=== PATIENT | female | born 1985 | race Caucasian/White ===

== ENCOUNTER 2025-05-25 13:44 | Emergency (ER) | payer BC, SELFPAY ==
[2025-05-25 13:50] VITALS: BP 138/80
[2025-05-25 14:18] LABS: Hematocrit 42.5 % (37.0-47.0); Hemoglobin 13.8 g/dL (12.0-16.0); Mean Corp Hgb Conc. 32.5 g/dL (33.0-37.0); Mean Corpuscular Volume 91.6 fL (81.0-99.0); Nucleated Red Blood Cells % 0 %; Platelet Count 386 10^3/uL (130-400); Red Cell Dist. Width 12.5 % (11.5-14.5)
[2025-05-25 14:35] LABS: HCG, Serum Qualitative Screen Negative
[2025-05-25 14:39] LABS: ALT (SGPT) 20 U/L (0-35); AST (SGOT) 29 U/L (14-36); Albumin 4.9 g/dl (3.5-5.0); Alkaline Phosphatase 57 U/L (38-126); Blood Urea Nitrogen 9 mg/dl (7-17); Calcium 9.7 mg/dl (8.4-10.2); Carbon Dioxide 28 mmol/L (22-30); Chloride 104 mmol/L (98-107); Glucose 120 mg/dl (70-99); Potassium 4.0 mmol/L (3.5-5.1); Sodium 137 mmol/L (135-145); Total Protein 7.9 g/dl (6.3-8.2); eGFR > 60.00
[2025-05-25 14:43] LABS: Troponin I < 0.012 ng/ml
--- NOTE | 2025-05-25 15:25 | ED.GENMED ---
History of Present Illness
General
Chief Complaint: Chest Pain
Source: patient and spouse
Exam Limitations: none
Time Seen by Provider: 05/25/25 15:15
Nursing documentation reviewed up to this point in time: agreed with except (Sent for possible pleural fluid as opposed to pericardial?)
History of Present Illness
History of Present Illness:
39 female presents with fatigue congestion left-sided chest pain some cough 20 pound weight gain URI type symptoms for a month or 2 seen at urgent care told she may have fluid in her lungs on the left side referred here for evaluation she is a
drinker non-smoker no prior abdominal surgeries she has had vein injections in the superficial veins in her calves 15 years ago no history of DVT PE no foreign travel no hemoptysis no dark or bloody stools no hematuria
Past History
Past History
ED Past Surgical History: Other (Vein injections of the)
Social History
Tobacco: Non-smoker
Alcohol: Occasional
Drug: None
Personal:
Living: with family
Employment: Employed
Review of Systems
Review of Systems
All Other Systems: Not applicable
Constitutional: Reports fatigue; Denies fever
EENT: Reports runny nose
Respiratory: Reports cough
Cardiac: Reports chest pain
ABD/GI: Reports no symptoms
: Reports no symptoms
Musculoskeletal: Reports no symptoms
Skin: Reports no symptoms
Neurological: Reports no symptoms
Phy Exam
Physical Exam
Physical Exam:
Physical Exam
General: no apparent distress, not acutely ill
Neck: No jaundice
Heart: s1/s2 regular rate and rhythm, no murmur. equal radial pulses.
Lungs: no acute respiratory distress. clear bilaterally
Abdomen: Not tender
Neuro: alert and oriented. no focal neurological deficits
Skin: no rash
Psychiatric: well kept. interactive and cooperative
Extremities: no edema. no calf tenderness
Scores
Heart Score for Chest Pain Patients
STEMI patient?: No
History: Slightly or Non-Suspicious
ECG: Normal
Age: </= 45 years
Risk Factors: No Risk Factors
Troponin: </= Normal Limit
Heart Score for Chest Pain Patients: 0
Heart Score Risk: 2.5% MACE over next 6 weeks
Course
Orders/Labs/Results
Orders:
Orders
05/25/25 13:47
Electrocardiogram (*1) Urgent
Reason for Study: Chest Pain
EKG- Treatment ONCE
05/25/25 13:57
Test Result ONCE
05/25/25 14:07
BNP [NT-proBNP] Urgent
C-Reactive Protein Urgent
Comment: ADD ON
Complete Blood Count/With Diff Urgent
Comprehensive Metabolic Panel Urgent
Erythrocyte Sed Rate Urgent
Comment: ADD ON
HCG, Serum Qualitative Screen Urgent
Troponin I Urgent
05/25/25 15:24
Add On- LAB Urgent
Tests Added?: esr/crp
CT Chest PE Study Urgent
Comment:
Reason For Exam: pleuritc cp
05/25/25 16:56
Dexamethasone Sod Phosphate [Decadron] 10 mg IV NOW STA
Ipratropium/Albuterol Sulfate [Duoneb] 3 ml INH R NOW STA
05/25/25 17:00
Azithromycin [Zithromax] 500 mg PO NOW STA
05/25/25 17:21
Azithromycin [Zithromax] 500 mg PO NOW STA
Abnormal Lab Results
05/25/25
14:07
MCHC 32.5 L g/dL
(33.0-37.0)
Absolute Neuts (auto) 8.4 H 10^3/uL
(1.4-6.5)
Absolute Monos (auto) 0.7 H 10^3/uL
(0.1-0.6)
Neutrophils % 77.6 H %
(42.2-75.2)
Lymphocytes % 11.9 L %
(20.5-51.1)
Glucose 120 H mg/dl
(70-99)
05/25/25 14:07
05/25/25 14:07
Vital Signs
Initial and Last Documented VS:
Initial Vital Signs
Pulse Resp BP Pulse Ox
82 18 138/80 98
05/25/25 13:50 05/25/25 13:50 05/25/25 13:50 05/25/25 13:50
Last Documented Vital Signs
Pulse Resp BP Pulse Ox
82 18 138/80 98
05/25/25 13:50 05/25/25 13:50 05/25/25 13:50 05/25/25 15:27
MDM/Problems Addressed
Differential Diagnosis Includes:
Viral syndrome URI inflammatory process infectious process PE doubt ACS
MDM/Problems Addressed:
URI symptoms allergic symptoms pleuritic chest pain
*Pulse Oximetry
SaO2: 98
Oxygen Mode of Delivery: Room air
Patient hypoxic: no
*EKG
Interpreted by ED Provider?: Yes
Interpretation: normal
Comparison EKG: no comparison EKG present
Heart Rate: 78
Rate: normal
Rhythm: sinus
Ischemia: no ischemia
*Mule Spinner Interpretation
Rate: normal
Interpretation: normal
Heart Rate: 78
Rhythm: sinus
*Critical Care Note
Total Time (30-74mins, 75-104mins- exclusive of procedures): Not Applicable
Update Note
Update Note:
Update labs noted EKG noted wet inflammatory markers CT of the chest to rule PE try to find anatomy and/or potential pathology
5:[address] noted, patient did show me some pictures of red rashes, not entirely clear what the inciting incident is here perhaps allergic or rheumatologic, will treat with some steroids antibiotics MDI give her number for PCP clinic
ED Attending Note
-
Portions of this chart may have been created with voice recognition software.� Occasional wrong word or��sound alike� substitutions may have occurred due to the inherent limitations of voice recognition software.
Discharge Plan
Departure
Patient Disposition: Home (Routine Discharge)
Date of Disposition: 05/25/25
Time of Disposition: 17:25
Patient with high blood pressure during this ER visit?: No
Condition: Good
Discharge Problem:
Bronchitis
Instructions: Bronchitis in adults - ED (DC)
Prescriptions:
New
methylprednisolone [Medrol (Chris)] 4 mg tablets,dose pack
See Rx Instructions .ROUTE .COMPLEX Qty: 21 0RF
Rx Instructions:
for 6 days
azithromycin [Zithromax] 250 mg tablet
250 mg PO DAILY Qty: 4 0RF
albuterol sulfate [Ventolin HFA] 90 mcg/actuation HFA aerosol inhaler
2 inh inhalation Q6H PRN (Reason: shortness of breath or wheezing) Qty: 8.5 0RF
Referrals:
[facility] [Provider Group]
NONE,* [Family Provider, Internal Medicine]
Interventions
Interventions:
*General Assessment Last Done: 05/25/25 13:50
ED- Cardiac Assessment Last Done: 05/25/25 15:16
Discharge Date and Time
Print Language: TAJIK
[2025-05-25 16:44] LABS: C-Reactive Protein < 5.00 mg/L (0.0-10.00)
[2025-05-25] MEDS: DECADRON 10 MG IV (17:26)
[2025-05-25] MEDS: DUONEB 3 ML INH (17:26)
[2025-05-25] MEDS: ZITHROMAX 500 MG PO (17:27)
[2025-05-25 17:39] VITALS: BP 126/74
== END 2025-05-25 18:22 | disposition home or self-care (01) ==
LOC: EMR 13:44
PROVIDERS: Student in an Organized Health Care Education/Training Program; EMERGENCY PHYSICIAN Emergency Medicine
DX: J40 Bronchitis, not specified as acute or chronic (principal)
CPT/HCPCS: 99284; 96374; 94640; 71275; 80053; 83880; 84484; 84703; 85025; 85652; 86140; 93005; Q9967